=== PATIENT | female | born 1995 | race Caucasian/White ===

== ENCOUNTER 2017-01-30 01:57 | Emergency (ER) | payer BC ==
[2017-01-30 02:21] VITALS: TEMP 97.4; O2SAT 97
[2017-01-30] MEDS ORDERED: PROMETHAZINE HCL INJ 25 MG in SODIUM CHLORIDE 0.9% 50ML 50 ML IVPB ONE (02:28)
[2017-01-30] MEDS ORDERED: SODIUM CHLORIDE 0.9% 1000ML 1,000 ML IVS ONE (02:28)
--- NOTE | 2017-01-30 02:31 | ED.PDOC ---
History of Present Illness - General Chief Complaint: GI Problem Stated Complaint: n/v/d since this pas evening Time Seen by Provider: 01/30/17 02:07 Source: patient Exam Limitations: no limitations - History of Present Illness Initial Comments: the patient is a [id number] female presenting to the emergency room secondary to nausea and vomiting for the last 7 hours with some diarrhea for the last 2 or 3 hours. No fever. No abdominal pain. No cramping in her lower abdomen. No vaginal bleeding. She is feeling some movement. She is approximately 5 months according to her. This is her first . The so far has been uneventful. She is however underweight for her . no previous similar symptoms. Timing/Duration: 4-6 hours Severity: moderate Improving Factors: nothing Worsening Factors: nothing Associated Symptoms: loss of appetite, malaise, nausea/vomiting Allergies/Adverse Reactions: Allergies NO KNOWN ALLERGY Allergy (Verified 01/30/17 02:10) Home Medications: Ambulatory Orders Famotidine 20 mg PO DAILY #30 tab 01/30/17 Vit W/ Ferrous Fumara [] 1 tab PO DAILY 01/30/17 Promethazine HCl 25 mg PO Q6H PRN #10 tab 01/30/17 Promethazine HCl [Phenergan] 25 mg DE Q6H PRN #10 sup 01/30/17 Review of Systems - Review of Systems Constitutional: States: malaise EENTM: States: no symptoms reported Respiratory: States: no symptoms reported Cardiology: States: no symptoms reported Gastrointestinal/Abdominal: States: diarrhea, nausea, vomiting Genitourinary: States: no symptoms reported Skin: States: no symptoms reported Neurological: States: no symptoms reported Endocrine: States: no symptoms reported All other Systems: No Change from Baseline Past Medical History (General) - Patient Medical History Hx Asthma: No Hx Cardiac Disorders: Yes - mild heart murmur Hx Hypertension: No Hx Diabetes: No Hx Gastroesophageal Reflux: No Hx Cancer: No Surgical History: no surgical history - Vaccination History Hx Tetanus, Diphtheria Vaccination: No Hx Pneumococcal Vaccination: No - Social History Hx Tobacco Use: No Hx Alcohol Use: No - Female History Patient is a Female of Child Bearing Age (10 -59 yrs old): Yes Patient : Yes Expected Date of Delivery:: 04/15/17 Hx Gestational Age: 19 Family Medical History - Family History Mother Family History: Unknown Physical Exam - Physical Exam General Appearance: Alert, Comfortable, No apparent distress Eye Exam: bilateral normal Ears, Nose, Throat: hearing grossly normal, normal ENT inspection, normal pharynx Neck: non-tender, full range of motion Respiratory: chest non-tender, lungs clear, normal breath sounds, no respiratory distress, no accessory muscle use Cardiovascular/Chest: normal peripheral pulses, regular rate, rhythm, no edema Peripheral Pulses: radial,right: 2+, radial,left: 2+, dorsalis pedis,right: 2+, dorsalis pedis,left: 2+ Gastrointestinal/Abdominal: non tender, soft Rectal Exam: deferred Back Exam: normal inspection, no CVA tenderness, no vertebral tenderness Extremity: normal range of motion, non-tender, normal inspection, no pedal edema , normal capillary refill Neurologic: alert, normal mood/affect, oriented x 3 Skin Exam: normal color Comments: Vital Signs - 24 hr 01/30/17 02:12 Temperature 97.4 F L Pulse Rate [ 127 H left] Respiratory 18 Rate Blood Pressure 117/82 [left] O2 Sat by Pulse 97 Oximetry Progress - Progress Progress: 01/30/17 04:43 the patient is a 21-year-old female presenting to the emergency room secondary to nausea and vomiting and mild diarrhea for the last 6-7 hours. Lab work is reassuring. White blood cell count is mildly elevated at 13,000. The patient has responded well to IV fluids and a dose of Phenergan. She'll be written for Phenergan for as needed use for any further nausea and vomiting. 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 ER warnings were given for any acute worsening. The patient was fairly dehydrated. she will additionally have famotidine to take daily for the next couple of weeks. - Results/Orders Results/Orders: Laboratory Tests 01/30/17 01/30/17 01/30/17 02:45 02:45 04:27 WBC 13.8 H RBC 4.36 Hgb 13.0 Hct 39.1 MCV 89.6 MCH 29.9 MCHC 33.4 RDW 14.9 H Plt Count 235 MPV 8.1 Absolute Neuts (auto) 12.70 H Absolute Lymphs (auto) 0.70 L Absolute Monos (auto) 0.30 Absolute Eos (auto) 0.10 Absolute Basos (auto) 0.00 Neutrophils % 92.1 H Lymphocytes % 5.2 L Monocytes % 2.0 Eosinophils % 0.4 L Basophils % 0.3 Sodium 138 Potassium 3.7 Chloride 107 Carbon Dioxide 18 L Anion Gap 16.7 BUN 13 Creatinine 0.47 L BUN/Creatinine Ratio 27.7 H Random Glucose 106 H Serum Osmolality 276.2 Calcium 9.5 Total Bilirubin 0.9 AST 36 ALT 37 Alkaline Phosphatase 61 Serum Total Protein 7.7 Albumin 4.2 Globulin 3.5 Albumin/Globulin Ratio 1.2 Amylase 237 H* Lipase 30 Urine Color Yellow Urine Appearance Clear Urine pH 5.0 Ur Specific [place] >= 1.030 Urine Protein Trace Urine Glucose (UA) Negative Urine Ketones >=160 Urine Blood Trace-intact H Urine Nitrite Negative Urine Bilirubin Small H Urine Urobilinogen 0.2 Ur Leukocyte Esterase Negative Urine RBC 0-1 Urine WBC 0-1 Ur Epithelial Cells 3-5 Urine Bacteria 1+ Urine Mucus Small heart tones are 140s Departure - Departure Clinical Impression: Gastroenteritis Disposition: Discharge to Home or Self Care Condition: Fair Departure Forms: ED Discharge - Pt. Copy, Patient Portal Self Enrollment Instructions: DI for Viral Gastroenteritis -- Adult Diet: bland diet Activity: increase activity as tolerated Prescriptions: Famotidine 20 mg PO DAILY #30 tab Promethazine HCl 25 mg PO Q6H PRN #10 tab PRN Reason: Vomiting Promethazine HCl [Phenergan] 25 mg DE Q6H PRN #10 sup PRN Reason: Nausea/Vomiting Home Medications: Ambulatory Orders Famotidine 20 mg PO DAILY #30 tab 01/30/17 Vit W/ Ferrous Fumara [] 1 tab PO DAILY 01/30/17 Promethazine HCl 25 mg PO Q6H PRN #10 tab 01/30/17 Promethazine HCl [Phenergan] 25 mg DE Q6H PRN #10 sup 01/30/17 Additional Instructions: the patient is a 21-year-old female presenting to the emergency room secondary to nausea and vomiting and mild diarrhea for the last 6-7 hours. Lab work is reassuring. White blood cell count is mildly elevated at 13,000. The patient has responded well to IV fluids and a dose of Phenergan. She'll be written for Phenergan for as needed use for any further nausea and vomiting. 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 ER warnings were given for any acute worsening. The patient was fairly dehydrated. she will additionally have famotidine to take daily for the next couple of weeks.
[2017-01-30] MEDS ORDERED: SODIUM CHLORIDE 0.9% 50ML 50 ML ONE (02:32)
[2017-01-30] MEDS ORDERED: PROMETHAZINE HCL INJ 25 MG/ML VIAL ONE (02:32)
[2017-01-30] MEDS ORDERED: PROMETHAZINE HCL 25 MG TAB PO ONE (04:43)
[2017-01-30 04:55] VITALS: BP 101/54
== END 2017-01-30 04:55 | disposition home or self-care (01) ==
LOC: ER 01:57
DX: O99.612 Diseases of the digestive system complicating pregnancy, second trimester (principal); R01.1 Cardiac murmur, unspecified; Z79.899 Other long term (current) drug therapy; Z3A.19 19 weeks gestation of pregnancy
CPT/HCPCS: 36415; 80053; 81001; 82150; 83690; 85025; A4216; J2550; J7030; Q0169